=== PATIENT | female | born 1945 | race Two or more races ===

== ENCOUNTER 2018-08-12 20:28 | Inpatient (IN) | payer OTHER ==
[~2018-08-12] VITALS: Ht 149.9 cm; Wt 69.9 kg
[2018-08-12] MEDS: PIPERACILLIN SODIUM/TAZOBACTAM 3.375 G in IV DEXTROSE 5% 50 ML IV ONE ×2 (20:10→22:10)
[~2018-08-12 20:28] MED LIST: IBUPROFEN 100 MG
[2018-08-12] MEDS ORDERED: FAMOTIDINE. 20 MG/2 ML VIAL IV ONE ×2 (20:45→20:49)
[2018-08-12] MEDS ORDERED: methylPREDNISolone SOD SUCC 125 MG/2 ML VIAL IV ONE (20:45)
[2018-08-12] MEDS ORDERED: diphenhydrAMINE 50 MG/1 ML VIAL IV ONE (20:45)
[2018-08-12] MEDS ORDERED: diphenhydrAMINE 50 MG/1 ML VIAL ONE (20:48)
[2018-08-12] MEDS ORDERED: methylPREDNISolone SOD SUCC 125 MG/2 ML VIAL ONE (20:48)
[2018-08-12] MEDS ORDERED: IBUP-1955 PO (20:49)
[2018-08-12] MEDS ORDERED: ACETAMINOPHEN ES 500 MG TABLET ONE (20:58)
[2018-08-12] MEDS ORDERED: ACETAMINOPHEN ES 500 MG TABLET PO ONE (21:00)
--- NOTE | 2018-08-12 21:00 | NUR ---
PT BIB FAMILY FROM HOME FOR THE C/O GENERALIZED HIVES SINCE 1400 TODAY. PATIENT TOOK BENADRYL 1 MG. SPO2 98% ON RA. PT PLACED ON MONITOR. SAFE ENVIRONMENT IMPLEMENTED.
[2018-08-12 21:01] LABS: BASOPHILS % (AUTO) 0.7 % (0.0-2.0); EOSINOPHILS # (AUTO) 0.2 K/uL (0.0-0.7); EOSINOPHILS % (AUTO) 2.8 % (0.0-7.0); HEMATOCRIT 39.3 % (31.2-41.9); HEMOGLOBIN 13.7 g/dL (10.9-14.3); LYMPHOCYTES # (AUTO) 0.8 K/uL (20.0-40.0); LYMPHOCYTES % (AUTO) 14.6 % (20.5-51.5); MEAN CORPUSCULAR HEMOGLOBIN 30.7 uug (24.7-32.8); MEAN CORPUSCULAR HGB CONC 35 g/dL (32.3-35.6); MEAN CORPUSCULAR VOLUME 88.2 fL (75.5-95.3); MONOCYTES # (AUTO) 0.2 K/uL (2.0-10.0); MONOCYTES % (AUTO) 3.3 % (0.0-11.0); NEUTROPHILS # (AUTO) 4.4 K/uL (1.8-8.9); NEUTROPHILS % (AUTO) 78.6 % (38.5-71.5); PLATELET COUNT (AUTO) 117 K/uL (179-408); RED BLOOD CELL COUNT(AUTO) 4.46 MIL/uL (3.63-4.92); WHITE BLOOD COUNT (AUTO) 5.6 K/uL (3.8-11.8)
[2018-08-12 21:09] LABS: CARBON DIOXIDE 24 mmol/L (21-32); CHLORIDE 100 mmol/L (98-107); CREATININE 0.7 mg/dL (0.6-1.3); GLUCOSE 108 mg/dL (74-106); UREA NITROGEN, BLOOD 17 mg/dL (7-18)
[2018-08-12] MEDS ORDERED: ONDANSETRON 4 MG/2 ML VIAL IV ONE (21:15)
[2018-08-12] MEDS ORDERED: ONDANSETRON 4 MG/2 ML VIAL ONE (21:16)
[2018-08-12 21:21] LABS: ALANINE AMINOTRANSFERASE 133 U/L (14-59); ALKALINE PHOSPHATASE 114 U/L (50-136); ASPARTATE AMINOTRANSFERASE 124 U/L (15-37); BILIRUBIN,DIRECT 0.2 mg/dL (0.0-0.2); BILIRUBIN,TOTAL 0.7 mg/dL (0.2-1.0); TOTAL PROTEIN, SERUM 7.9 g/dL (6.4-8.2)
[2018-08-12 21:58] LABS: *BILIRUBIN,URIN NEGATIVE (NEGATIVE); *BLOOD, URINE Trace-lysed (NEGATIVE); *CLARITY,URINE SLIGHTLY CLOUDY (CLEAR); *KETONES,URINE NEGATIVE (NEGATIVE); *UROBILINOGEN,URINE 0.2 E.U./dl (NORMAL); LEUKOCYTE ESTERASE ,URINE 1+ (NEGATIVE); NITRITE, URINE NEGATIVE (NEGATIVE); PH,URINE 5.5 (5.0-8.0); UGLUCOSE NEGATIVE (NEGATIVE)
[2018-08-12] MEDS ORDERED: VANCOMYCIN IV 1,000 MG in IV DEXTROSE 5% 250 ML IV ONE (22:00)
[2018-08-12] MEDS ORDERED: IV NORMAL SALINE 1000 ML BAG IV ONE (22:00)
[2018-08-12 22:04] LABS: *COLOR,URINE YELLOW (YELLOW)
[2018-08-12 22:06] LABS: BACTERIA,URINE MODERATE /HPF (NONE SEEN); SQUAMOUS EPITHELIAL CELL,UR FEW /HPF (NONE SEEN); WBC,URINE 20-50 /HPF (0-3)
[2018-08-12] MEDS ORDERED: PIPERACILLIN/TAZOBACTAM/D5W 50 ML IV ONE (22:06)
[2018-08-12 22:07] LABS: MUCUS,URINE MANY /LPF (0-FEW)
--- NOTE | 2018-08-12 22:54 | NUR ---
HELENE FROM [facility] CALLED FOR MEDICAL INFORMATION WHICH I INFORMED.
[2018-08-12] MEDS ORDERED: VANCOMYCIN IV 200 ML ONE (23:05)
[2018-08-13] VITALS (7 sets, daily range): BP systolic 124–145; BP diastolic 50–70
--- NOTE | 2018-08-13 00:22 | NUR ---
EPIC PAGED FOR PANEL CALL.
--- NOTE | 2018-08-13 00:26 | NUR ---
Dr. Graf on phone with Dr. Lee.
[2018-08-13] MEDS ORDERED: IBUPROFEN 600 MG TABLET PO PRN (00:45)
[2018-08-13] MEDS ORDERED: Z GUARD REMEDY PASTE 57 GM TUBE TOP PRN (00:45)
[2018-08-13] MEDS ORDERED: MAGNESIUM HYDROXIDE 30 ML LIQUID UDC PO PRN (00:45)
[2018-08-13] MEDS ORDERED: HYDROCODONE/APAP 5-325MG TABLET PO PRN (00:45)
[2018-08-13] MEDS ORDERED: IV NS 1000 ML 1,000 ML IV SCH (00:45)
--- NOTE | 2018-08-13 01:00 | NUR ---
ADMITTED A 72 YEARS OLD FEMALE WITH DIAGNOSIS OF UTI/SEPSIS AND RASH OF UNKNOWN ORIGIN. PATIENT AAOX4, TELUGU SPEAKING ONLY. DAUGHTER ROE AT BEDSIDE AND TRANSLATED FOR THIS NURSE. IN NO ACUTE DISTRESS. DENIES ANY PAIN OR SOB AT THIS TIME. AFEBRILE. NSR ON TELE AT 95/MIN. IV SITE ON RIGHT AC INTACT AND PATENT. ROUTINE ADMISSION CARE DONE. PLAN OF CARE INITIATED. SAFETY MEASURE INITIATED AND CALL HARRIS WITHIN REACH.
--- NOTE | 2018-08-13 01:05 | NUR ---
Pt. admitted to TELE , under care of Dr. Lee Belongs List completed
[2018-08-13] MEDS ORDERED: CEFTRIAXONE 1 G VIAL ONE (01:29)
[2018-08-13] MEDS ORDERED: CEFTRIAXONE 1 G in IV DEXTROSE 5% 50 ML IV SCH (01:30)
--- NOTE | 2018-08-13 06:46 | NUR ---
AAOX4. IN NO ACUTE DISTRESS. DENIES ANY PAIN OR SOB. NSR ON TELE AT 93/MIN. IV SITE ON RIGHT AC INTACT AND PATENT. NO ADVERSE EFFECT NOTED FROM IV ABX. GENERALIZED RASHES/HIVES STILL VISIBLE. DENIES ANY ITCHING OR PAIN FROM RASH. ISOLATION PRECAUTION OBSERVED. SAFETY MEASURE MAINTAINED AND CALL HARRIS WITHIN REACH.
[2018-08-13] MEDS: ACETAMINOPHEN 325 MG TABLET PO PRN ×2 (07:22→20:59)
[2018-08-13 07:25] LABS: BASOPHILS % (AUTO) 0.2 % (0.0-2.0); EOSINOPHILS % (AUTO) 0.1 % (0.0-7.0); HEMATOCRIT 38.3 % (31.2-41.9); LYMPHOCYTES # (AUTO) 0.5 K/uL (20.0-40.0); LYMPHOCYTES % (AUTO) 9.9 % (20.5-51.5); MEAN CORPUSCULAR HEMOGLOBIN 30.5 uug (24.7-32.8); MEAN CORPUSCULAR HGB CONC 34 g/dL (32.3-35.6); MEAN CORPUSCULAR VOLUME 89.8 fL (75.5-95.3); MONOCYTES # (AUTO) 0.1 K/uL (2.0-10.0); MONOCYTES % (AUTO) 1.9 % (0.0-11.0); NEUTROPHILS # (AUTO) 4.8 K/uL (1.8-8.9); NEUTROPHILS % (AUTO) 87.9 % (38.5-71.5); PLATELET COUNT (AUTO) 112 K/uL (179-408); RED BLOOD CELL COUNT(AUTO) 4.26 MIL/uL (3.63-4.92); WHITE BLOOD COUNT (AUTO) 5.5 K/uL (3.8-11.8)
[2018-08-13 07:37] LABS: CARBON DIOXIDE 22 mmol/L (21-32); CHLORIDE 104 mmol/L (98-107); CHOLESTEROL 132 mg/dL (<200); CREATININE 0.8 mg/dL (0.6-1.3); GLUCOSE 176 mg/dL (74-106); HDL CHOLESTEROL 38 mg/dL (40-60); MAGNESIUM 1.6 mg/dL (1.8-2.4); PHOSPHOROUS 3.4 mg/dL (2.5-4.9); POTASSIUM 3.9 mmol/L (3.5-5.1); TRIGLYCERIDES 148 MG/DL (30-150); UREA NITROGEN, BLOOD 11 mg/dL (7-18)
[2018-08-13 07:44] LABS: BILIRUBIN,DIRECT 0.1 mg/dL (0.0-0.2); BILIRUBIN,TOTAL 0.5 mg/dL (0.2-1.0); TOTAL PROTEIN, SERUM 7.5 g/dL (6.4-8.2)
--- NOTE | 2018-08-13 08:08 | NUR ---
Received critical lab for Lactic Acid 4.0, relayed to Catarina [employer] TEAM MEMBER with orders. Awake, alert, oriented x4, thai speaking with family at bedside
[2018-08-13] MEDS ORDERED: IV NS 1000 ML 1,000 ML IV ONE ×2 (08:15→18:30)
[2018-08-13] MEDS: ONDANSETRON 4 MG/2 ML VIAL IV PRN (08:44)
--- NOTE | 2018-08-13 11:10 | NUR ---
IV Bolus done. Vital signs rechecked and recorded. Afebrile.
--- NOTE | 2018-08-13 11:30 | NUR ---
Generalized rashes examined with Infection Control Roney. ID consulted. Airborne precaution enforced. Hepa filter placed in the room.
[2018-08-13] MEDS ORDERED: MAGNESIUM OXIDE 400 MG TABLET PO ONE (12:15)
--- NOTE | 2018-08-13 15:33 | NUR ---
Noted generalized rashes, seen examined by ID. MMR lab drawn. Continue airborne isolation
[2018-08-13] MEDS ORDERED: OMEP20CA10 PO (16:38)
--- NOTE | 2018-08-13 18:24 | NUR ---
Ate fairly; IVF infusing. Afebrile.
--- NOTE | 2018-08-13 18:35 | NUR ---
Lactic acid 3.7; Another NS bolus 1 liter initiated. Will endorsed for further care and follow up
[2018-08-13] MEDS: IV NS 1000 ML 1,000 ML IV PRN (18:36)
--- NOTE | 2018-08-13 19:20 | NUR ---
PATIENT ALERT AND AWAKE. IV FLUID INFUSING ORDERED PATIENT CONTINUING ON AIRBORNE PRECAUTIONS. RASH WITH REDNESS PRESENT THROUGH OUT LING BODY. NO FEVER NOTED. WILL CONTINUE OT MONITOR
[2018-08-14] MEDS: CEFTRIAXONE 1 G in IV DEXTROSE 5% 50 ML IV SCH (01:52)
[2018-08-14 03:35] VITALS: BP 156/54
[2018-08-14 05:49] LABS: BASOPHILS % (AUTO) 0.3 % (0.0-2.0); EOSINOPHILS # (AUTO) 0.1 K/uL (0.0-0.7); HEMATOCRIT 34.2 % (31.2-41.9); HEMOGLOBIN 11.8 g/dL (10.9-14.3); LYMPHOCYTES # (AUTO) 1.2 K/uL (20.0-40.0); LYMPHOCYTES % (AUTO) 21.2 % (20.5-51.5); MEAN CORPUSCULAR HEMOGLOBIN 30.6 uug (24.7-32.8); MEAN CORPUSCULAR HGB CONC 34 g/dL (32.3-35.6); MEAN CORPUSCULAR VOLUME 88.8 fL (75.5-95.3); MONOCYTES # (AUTO) 0.3 K/uL (2.0-10.0); NEUTROPHILS # (AUTO) 4.1 K/uL (1.8-8.9); NEUTROPHILS % (AUTO) 71.5 % (38.5-71.5); PLATELET COUNT (AUTO) 120 K/uL (179-408); RED BLOOD CELL COUNT(AUTO) 3.86 MIL/uL (3.63-4.92); WHITE BLOOD COUNT (AUTO) 5.7 K/uL (3.8-11.8)
[2018-08-14] MEDS: IV NS 1000 ML 1,000 ML IV PRN ×2 (05:58→21:17)
[2018-08-14 05:59] LABS: CARBON DIOXIDE 22 mmol/L (21-32); CHLORIDE 107 mmol/L (98-107); CREATININE 0.6 mg/dL (0.6-1.3); GLUCOSE 106 mg/dL (74-106); MAGNESIUM 1.8 mg/dL (1.8-2.4); PHOSPHOROUS 2.9 mg/dL (2.5-4.9); POTASSIUM 3.5 mmol/L (3.5-5.1); UREA NITROGEN, BLOOD 11 mg/dL (7-18)
--- NOTE | 2018-08-14 06:47 | NUR ---
NO CHANGE IN RASH NOTED. CONTINUING ON AIRBORNE PRECAUTION. NO C/O OF PAIN OR ANY DISTRESS. NO FEVER. WILL ALL NEEDS ATTENDED
--- NOTE | 2018-08-14 07:15 | NUR ---
RECEIVED PATIENT ON AIRBORN PRECAUTIONS. PATIENT IN BED ASLEEP, EASY TO AROUSE, AOX4 NAURUAN SPEAKING, UNDERSTANDS ITALIAN. R AC GETING NS AT 125CC/HR. PATIENT DENIES PAIN OR SOB. ALL NEEDS MET AT THIS TIME. SAFETY PRECAUTIONS IN PLACE. WILL CONTINUE TO MONITOR.
[2018-08-14] MEDS ORDERED: IV NS 1000 ML 1,000 ML IV ONE (08:15)
[2018-08-14 11:10] VITALS: BP 167/54
[2018-08-14 15:10] VITALS: BP 125/50
--- NOTE | 2018-08-14 19:28 | NUR ---
PATIENT VS TABLE THROUGH SHIFT. NO FEVER. DENIES PAIN THROUGH SHIFT. ALL NEEDS MET AT THIS TIME.
[2018-08-14 20:00] VITALS: BP 166/74
--- NOTE | 2018-08-14 20:00 | NUR ---
PATIENT LYING ON BED, AWAKE, CONTINUING ON AIRBORNE ISOLATION FOR MEASLES R/O. STILL NOTE WITH RASH THROUGH OUT THE BODY . PATIENT AFEBRILE. CONTINUING ON IVF ORDERED. WILL CONTINUE TO MONITOR.
[2018-08-14 21:00] VITALS: BP 114/51
[2018-08-15] MEDS: CEFTRIAXONE 1 G in IV DEXTROSE 5% 50 ML IV SCH (02:10)
[2018-08-15 03:18] VITALS: BP 120/60
[2018-08-15 06:12] LABS: BASOPHILS % (AUTO) 0.4 % (0.0-2.0); EOSINOPHILS # (AUTO) 0.1 K/uL (0.0-0.7); EOSINOPHILS % (AUTO) 2.9 % (0.0-7.0); HEMATOCRIT 34.4 % (31.2-41.9); HEMOGLOBIN 11.7 g/dL (10.9-14.3); LYMPHOCYTES # (AUTO) 1.5 K/uL (20.0-40.0); LYMPHOCYTES % (AUTO) 30.8 % (20.5-51.5); MEAN CORPUSCULAR HEMOGLOBIN 30.5 uug (24.7-32.8); MEAN CORPUSCULAR HGB CONC 34 g/dL (32.3-35.6); MEAN CORPUSCULAR VOLUME 89.4 fL (75.5-95.3); MONOCYTES # (AUTO) 0.3 K/uL (2.0-10.0); MONOCYTES % (AUTO) 6.8 % (0.0-11.0); NEUTROPHILS # (AUTO) 2.9 K/uL (1.8-8.9); NEUTROPHILS % (AUTO) 59.1 % (38.5-71.5); PLATELET COUNT (AUTO) 140 K/uL (179-408); RED BLOOD CELL COUNT(AUTO) 3.85 MIL/uL (3.63-4.92)
[2018-08-15 06:23] LABS: CARBON DIOXIDE 27 mmol/L (21-32); CHLORIDE 107 mmol/L (98-107); CREATININE 0.6 mg/dL (0.6-1.3); GLUCOSE 96 mg/dL (74-106); MAGNESIUM 1.8 mg/dL (1.8-2.4); PHOSPHOROUS 2.9 mg/dL (2.5-4.9); POTASSIUM 3.4 mmol/L (3.5-5.1); UREA NITROGEN, BLOOD 8 mg/dL (7-18)
--- NOTE | 2018-08-15 07:25 | NUR ---
PATIENT ON AIRBORNE ISOLATION FOR MEASLES R/O. PATIENT LAYING IN THE BED , ALERT AND ORIENTED . STILL NOTED WITH RASH THROUGH OUT THE BODY . PATIENT AFEBRILE. CONTINUING ON IVF ORDERED. WILL CONTINUE TO MONITOR. CONTINUE PLAN OF CARE.
[2018-08-15] MEDS: IV NS 1000 ML 1,000 ML IV PRN (09:20)
[2018-08-15] MEDS: ACETAMINOPHEN 325 MG TABLET PO PRN (09:55)
[2018-08-15] MEDS: ONDANSETRON 4 MG/2 ML VIAL IV PRN ×2 (09:57→18:53)
[2018-08-15] MEDS ORDERED: POTASSIUM CHLORIDE 50 ML IV SCH (10:00)
[2018-08-15 11:42] VITALS: BP 115/52
--- NOTE | 2018-08-15 18:30 | NUR ---
RESIDENT WAS SHOWING SIGNS OF EDEMA ON THE RIGHT ARM WITH IV , STOP IV FLUIDS AND REMOVED AND ELEVATE THE ARM WITH 2 PILLOWS, INSERT ANOTHER IV ON THE LEFT WRIST. CALLED JUANY ADAMS, REGARDING THE SITUATION WITH NEW ORDERS TO STOP IV FLUIDS FOR NOW.
--- NOTE | 2018-08-15 19:00 | NUR ---
RESIDENTS EDEMA SUBSIDED AND PATIENT ABLE TO GRAB WITH HER HAND THE CUP OF WATER AND SNACKS ON HER TABLE , NO PAIN NOTED AT THIS TIME, WILL CONTINUE TO MONITOR
--- NOTE | 2018-08-15 19:25 | NUR ---
RECEIVED PT AWAKE, ALERT AND ORIENTEDX4. FAMILY AT [place]. PT ON AIRBORNE PRECAUTION.PT SHOWS NO SIGNS OF ACUTE DISTRESS. IV INTACT. PT RIGHT ARM SWOLLEN . DOCTOR AWARE. PT RIGHT ARM ELEVATED AND HAVE ICE PACK. CALL LIGHT WITHIN REACH. SAFETY AND COMFORT PROVIDED. WILL CONTINUE TO MONITOR.
[2018-08-15 20:18] VITALS: BP 140/82
[2018-08-16] MEDS: CEFTRIAXONE 1 G in IV DEXTROSE 5% 50 ML IV SCH (02:08)
--- NOTE | 2018-08-16 04:55 | NUR ---
INFORMATION SENT: KEVIN PRATER NOTES 08/31,UR 07/18 INSURANCE NAME:[employer] FAX NUMBER: [phone]/ [phone] FAX SENT
--- NOTE | 2018-08-16 06:05 | NUR ---
INFORMATION SENT: KEVIN PRATER NOTES 08/31,UR 08/15 INSURANCE NAME:[employer] FAX NUMBER: [phone] / [phone] FAX SENT
[2018-08-16 06:27] VITALS: BP 135/72
--- NOTE | 2018-08-16 06:32 | NUR ---
PT SLEPT INTERMITTENTLY. PT SHOWS NO SIGNS OF DISTRESS. PRESCRIBED MEDICATION GIVEN AND PT TOLERATED IT WELL. SAFETY AND COMFORT PROVIDED. ALL NEEDS ARE MET. AIRBORNE PRECAUTION OBSERVED.WILL ENDORSE ACCORDINGLY TO INCOMING NURSE FOR CONTINUITY OF CARE.
[2018-08-16 07:06] LABS: BASOPHILS % (AUTO) 0.6 % (0.0-2.0); EOSINOPHILS # (AUTO) 0.1 K/uL (0.0-0.7); MONOCYTES # (AUTO) 0.4 K/uL (2.0-10.0); NEUTROPHILS # (AUTO) 2.7 K/uL (1.8-8.9); NEUTROPHILS % (AUTO) 51.2 % (38.5-71.5); WHITE BLOOD COUNT (AUTO) 5.3 K/uL (3.8-11.8)
[2018-08-16 07:12] LABS: EOSINOPHILS % (AUTO) 2.4 % (0.0-7.0); LYMPHOCYTES % (AUTO) 38.2 % (20.5-51.5); MEAN CORPUSCULAR HEMOGLOBIN 30.8 uug (24.7-32.8); MEAN CORPUSCULAR HGB CONC 35 g/dL (32.3-35.6); MEAN CORPUSCULAR VOLUME 89.3 fL (75.5-95.3); MONOCYTES % (AUTO) 7.6 % (0.0-11.0); PLATELET COUNT (AUTO) 154 K/uL (179-408); RED BLOOD CELL COUNT(AUTO) 3.58 MIL/uL (3.63-4.92)
[2018-08-16 07:21] LABS: CARBON DIOXIDE 24 mmol/L (21-32); CHLORIDE 107 mmol/L (98-107); CREATININE 0.6 mg/dL (0.6-1.3); GLUCOSE 92 mg/dL (74-106); PHOSPHOROUS 3.8 mg/dL (2.5-4.9); POTASSIUM 3.7 mmol/L (3.5-5.1); UREA NITROGEN, BLOOD 9 mg/dL (7-18)
--- NOTE | 2018-08-16 07:26 | NUR ---
PATIENT LAYING IN BED . ALERT AND ORIENTED. CONTINUE ON AIRBORNE PRECAUTION. NO S/S OF ACUTE DISTRESS. IV INTACT AND PATENT IN THE LEFT WRIST. SAFETY AND COMFORT PROVIDED. WILL CONTINUE TO MONITOR. CONTINUE PLAN OF CARE. CALL LIGHT WITHIN REACHED.
[2018-08-16] MEDS: ACETAMINOPHEN 325 MG TABLET PO PRN (10:00)
--- NOTE | 2018-08-16 11:00 | NUR ---
check patient in the room , no c/o pain and no c/o N/V noted at this time.
[2018-08-16 11:16] VITALS: BP 128/67
--- NOTE | 2018-08-16 15:00 | NUR ---
check patient in bed resting comfortably, no c/o pain or discomfort noted, kept clean and dry at all times.
[2018-08-16 15:54] VITALS: BP 123/55
--- NOTE | 2018-08-16 19:00 | NUR ---
PATIENT LAYING IN BED . ALERT AND ORIENTED. CONTINUE ON AIRBORNE PRECAUTION. NO S/S OF ACUTE DISTRESS. IV INTACT AND PATENT IN THE LEFT WRIST. SAFETY AND COMFORT PROVIDED. WILL CONTINUE TO MONITOR. CONTINUE PLAN OF CARE
--- NOTE | 2018-08-16 19:25 | NUR ---
RECEIVED PT AWAKE ,ALERT AND ORIENTED X 4. PT SHOWS NO SIGNS OF ACUTE DISTRESS. IV INTACT AND PATENT. SAFETY AND COMFORT PROVIDED. CALL LIGHT WITHIN REACH. WILL CONTINUE TO MONITOR.
[2018-08-16 20:27] VITALS: BP 142/66
--- NOTE | 2018-08-16 23:30 | NUR ---
Received patient lying in bed. Asleep but easily arouse to verbal stimuli. AOx4, Syriac speaking only. In no acute distress. Denies any pain or SOB. IV site on left wrist intact and patent. Isolation precaution observed. Continue to monitor.
--- NOTE | 2018-08-17 05:46 | NUR ---
INFORMATION SENT: KEVIN PRATER NOTES 08/16,08/15,08/14,CONSULTATION,UR 08/16 INSURANCE NAME:[employer] FAX NUMBER: [phone]& [phone] FAX SENT
--- NOTE | 2018-08-17 05:53 | NUR ---
Slept through out the night. Remains AOx4. In no acute distress. Denies any pain or SOB. IV site on left wrist intact and patent. Needs assessed and attended to. Isolation precaution observed. Safety measure maintained and call pereyra within reach.
[2018-08-17 06:50] VITALS: BP 140/62
[2018-08-17 08:21] LABS: BASOPHILS # (AUTO) 0.1 K/uL (0.0-8.0); BASOPHILS % (AUTO) 0.9 % (0.0-2.0); EOSINOPHILS # (AUTO) 0.1 K/uL (0.0-0.7); EOSINOPHILS % (AUTO) 1.8 % (0.0-7.0); HEMATOCRIT 34.6 % (31.2-41.9); HEMOGLOBIN 11.8 g/dL (10.9-14.3); LYMPHOCYTES # (AUTO) 2.5 K/uL (20.0-40.0); LYMPHOCYTES % (AUTO) 42.7 % (20.5-51.5); MEAN CORPUSCULAR HEMOGLOBIN 30.5 uug (24.7-32.8); MEAN CORPUSCULAR HGB CONC 34 g/dL (32.3-35.6); MEAN CORPUSCULAR VOLUME 89.3 fL (75.5-95.3); MONOCYTES # (AUTO) 0.5 K/uL (2.0-10.0); NEUTROPHILS # (AUTO) 2.8 K/uL (1.8-8.9); NEUTROPHILS % (AUTO) 46.6 % (38.5-71.5); PLATELET COUNT (AUTO) 190 K/uL (179-408); RED BLOOD CELL COUNT(AUTO) 3.88 MIL/uL (3.63-4.92)
[2018-08-17 08:36] LABS: CARBON DIOXIDE 25 mmol/L (21-32); CHLORIDE 104 mmol/L (98-107); CREATININE 0.6 mg/dL (0.6-1.3); GLUCOSE 88 mg/dL (74-106); PHOSPHOROUS 4.1 mg/dL (2.5-4.9); POTASSIUM 3.7 mmol/L (3.5-5.1); UREA NITROGEN, BLOOD 11 mg/dL (7-18)
[2018-08-17 12:25] VITALS: BP 144/67
--- NOTE | 2018-08-17 15:50 | NUR ---
PATIENT DISCHARGED IN STABLE CONDITION, DISCHARGE PAPERS AND INSTRUCTIONS GIVEN AND EXPLAINED TO PATIENT. IV ACCESS REMOVED. ID BAND DISPODED PROPERLY. DC PICTURES TAKEN AND PLACED IN CHART. PATIENT LEFT HOSPITAL ACCOMPANIED BY DAUGHTER.
--- NOTE | 2018-08-18 05:05 | NUR ---
INFORMATION SENT: KEVIN PRATER NOTES 08/17,DISCHARGE SUMMARY,UR 08/17 INSURANCE NAME: [employer] FAX NUMBER: [phone]& [phone]/ [phone] FAX SENT
== END 2018-08-17 15:50 | disposition home or self-care (01) | DRG 872 ==
LOC: ER 20:30 → TELE3 08-13 00:50 → MEDSURG3 08-13 10:29
PROVIDERS: ADMIT Family Medicine; ATTEND Registered Nurse
DX: A41.9 Sepsis, unspecified organism (principal); N39.0 Urinary tract infection, site not specified; E87.2 Acidosis; K21.9 Gastro-esophageal reflux disease without esophagitis; Z87.01 Personal history of pneumonia (recurrent); G43.909 Migraine, unspecified, not intractable, without status migrainosus; E87.6 Hypokalemia; E66.9 Obesity, unspecified; M19.90 Unspecified osteoarthritis, unspecified site; G89.29 Other chronic pain; M54.40 Lumbago with sciatica, unspecified side; Z82.49 Family history of ischemic heart disease and other diseases of the circulatory system; D69.6 Thrombocytopenia, unspecified; Z90.49 Acquired absence of other specified parts of digestive tract; B96.89 Other specified bacterial agents as the cause of diseases classified elsewhere; R74.0 Nonspecific elevation of levels of transaminase and lactic acid dehydrogenase [LDH]
CPT/HCPCS: 36415; 70030-TC; 71045; 83605; 83690; 83735; 84100; 85025; 85730; 86403; 87040; 87070; 87077; 87086; 87400; 93005; A4663; A9150; G0378; J0696; J1200; J2405; J2543; J2930; J3370; J3480; J3490; J7030; J7060

== ENCOUNTER 2019-03-17 15:55 | Inpatient (IN) | payer OTHER ==
[~2019-03-17] VITALS: Ht 152.4 cm; Wt 68.2 kg
[~2019-03-17 15:55] MED LIST changes: +IBUP-1955 PO; +OMEP20CA11 PO
[2019-03-17 16:26] LABS: BASOPHILS % (AUTO) 0.2 % (0.0-2.0); EOSINOPHILS % (AUTO) 0.2 % (0.0-7.0); HEMATOCRIT 39.7 % (31.2-41.9); HEMOGLOBIN 13.6 g/dL (10.9-14.3); LYMPHOCYTES # (AUTO) 1.4 K/uL (20.0-40.0); LYMPHOCYTES % (AUTO) 18.8 % (20.5-51.5); MEAN CORPUSCULAR HEMOGLOBIN 31.3 uug (24.7-32.8); MEAN CORPUSCULAR HGB CONC 34 g/dL (32.3-35.6); MEAN CORPUSCULAR VOLUME 91.2 fL (75.5-95.3); MONOCYTES # (AUTO) 0.5 K/uL (2.0-10.0); NEUTROPHILS # (AUTO) 5.4 K/uL (1.8-8.9); NEUTROPHILS % (AUTO) 73.8 % (38.5-71.5); PLATELET COUNT (AUTO) 174 K/uL (179-408); RED BLOOD CELL COUNT(AUTO) 4.35 MIL/uL (3.63-4.92); WHITE BLOOD COUNT (AUTO) 7.3 K/uL (3.8-11.8)
--- NOTE | 2019-03-17 16:26 | NUR ---
PT IS IN ROOM #2A. DR LEVI EVALUATED THE PT.
[2019-03-17] MEDS ORDERED: PANTOPRAZOLE SODIUM 40 MG VIAL IV ONE (16:30)
[2019-03-17] MEDS ORDERED: ONDANSETRON 4 MG/2 ML VIAL IV ONE (16:30)
[2019-03-17] MEDS ORDERED: IV NORMAL SALINE 1000 ML BAG IV ONE (16:30)
[2019-03-17] MEDS ORDERED: ONDANSETRON 4 MG/2 ML VIAL ONE (16:32)
[2019-03-17] MEDS ORDERED: PANTOPRAZOLE SODIUM 40 MG VIAL ONE (16:32)
[2019-03-17 16:34] LABS: CREATININE 0.7 mg/dL (0.6-1.3); POTASSIUM 3.5 mmol/L (3.5-5.1)
[2019-03-17 16:39] LABS: BILIRUBIN,DIRECT 0.2 mg/dL (0.0-0.2); BILIRUBIN,TOTAL 0.9 mg/dL (0.2-1.0); TOTAL PROTEIN, SERUM 7.7 g/dL (6.4-8.2)
--- NOTE | 2019-03-17 19:20 | NUR ---
JEFF giving report to [facility] for transfer Addendum: 03/17/[address] Albright from [facility] accepts patient for admission transfer
--- NOTE | 2019-03-17 19:41 | NUR ---
Dr. Kyle from [place] [facility]
[2019-03-17] MEDS ORDERED: MAG HYDROX/AL HYDROX/SIMETH 30 ML LIQUID UDC PO ONE (19:45)
[2019-03-17] MEDS ORDERED: MAG HYDROX/AL HYDROX/SIMETH 30 ML LIQUID UDC ONE (20:01)
--- NOTE | 2019-03-17 20:47 | NUR ---
Per Victoriano, Registrar, [place] gave the okay to admit here. Called [facility], awaiting call back from Dr. Lazcano
--- NOTE | 2019-03-17 21:02 | NUR ---
Dr. Lazcano returned phone call and is on the line with JEFF
--- NOTE | 2019-03-17 21:07 | NUR ---
Report given to HILDA Burnett
[2019-03-17 21:25] VITALS: BP 152/52
--- NOTE | 2019-03-17 21:25 | NUR ---
73 y/o female admitted under Dr. Welsh to tele from ED. Diagnosis chest pain. Patient in stable condition. Tele monitor attached to patient which shows sinus rhythm. Vital signs taken 97% O2 sat, HR 89, BP 152/52. No respiratory distress in the moment. No complaints of chest pain at this time. Admission protocol initiated. Daughters at the bed side. Safety precautions in place. Bed in lowest position locked, with 2 side rails up. Will continue to monitor.
[2019-03-17] MEDS ORDERED: ZOLPIDEM 5 MG TABLET PO PRN (21:30)
[2019-03-17] MEDS ORDERED: Z GUARD REMEDY PASTE 57 GM TUBE TOP PRN (21:30)
[2019-03-17] MEDS ORDERED: ACETAMINOPHEN 325 MG TABLET PO PRN (21:30)
[2019-03-17] MEDS ORDERED: HYDROCODONE/APAP 5-325MG TABLET PO PRN (21:30)
[2019-03-17] MEDS ORDERED: MORPHINE SULFATE 2 MG/1 ML DISP.SYRIN IV PRN (21:30)
[2019-03-17] MEDS ORDERED: MAGNESIUM HYDROXIDE 30 ML LIQUID UDC PO PRN (21:30)
[2019-03-17] MEDS ORDERED: NITROGLYCERIN 0.4 MG/TAB BOTTLE SL PRN (21:30)
--- NOTE | 2019-03-17 21:30 | NUR ---
Patient transported to TELE in stable condition.
[2019-03-17] MEDS: ONDANSETRON 4 MG/2 ML VIAL IV PRN (22:16)
[2019-03-18] VITALS: BP 125/55
[2019-03-18 03:36] LABS: BASOPHILS % (AUTO) 0.3 % (0.0-2.0); EOSINOPHILS % (AUTO) 0.2 % (0.0-7.0); HEMATOCRIT 35.6 % (31.2-41.9); HEMOGLOBIN 12.4 g/dL (10.9-14.3); LYMPHOCYTES # (AUTO) 1.2 K/uL (20.0-40.0); LYMPHOCYTES % (AUTO) 29.1 % (20.5-51.5); MEAN CORPUSCULAR HEMOGLOBIN 31.3 uug (24.7-32.8); MEAN CORPUSCULAR HGB CONC 35 g/dL (32.3-35.6); MEAN CORPUSCULAR VOLUME 89.9 fL (75.5-95.3); MONOCYTES # (AUTO) 0.4 K/uL (2.0-10.0); MONOCYTES % (AUTO) 9.8 % (0.0-11.0); NEUTROPHILS # (AUTO) 2.6 K/uL (1.8-8.9); NEUTROPHILS % (AUTO) 60.6 % (38.5-71.5); PLATELET COUNT (AUTO) 149 K/uL (179-408); RED BLOOD CELL COUNT(AUTO) 3.96 MIL/uL (3.63-4.92); WHITE BLOOD COUNT (AUTO) 4.3 K/uL (3.8-11.8)
[2019-03-18 03:45] LABS: CREATININE 0.7 mg/dL (0.6-1.3); MAGNESIUM 1.8 mg/dL (1.8-2.4); PHOSPHOROUS 3.5 mg/dL (2.5-4.9); POTASSIUM 3.3 mmol/L (3.5-5.1)
[2019-03-18 03:53] LABS: THYROID STIMULATING HORMONE 2.404 mIU/mL (0.358-3.740)
[2019-03-18 04:00] VITALS: BP 126/63
[2019-03-18 06:27] LABS: *BILIRUBIN,URIN NEGATIVE (NEGATIVE); *CLARITY,URINE SLIGHTLY CLOUDY (CLEAR); *COLOR,URINE YELLOW (YELLOW); *KETONES,URINE NEGATIVE (NEGATIVE); *UROBILINOGEN,URINE 0.2 E.U./dl (NORMAL); LEUKOCYTE ESTERASE ,URINE 1+ (NEGATIVE); NITRITE, URINE POSITIVE (NEGATIVE); UGLUCOSE NEGATIVE (NEGATIVE)
[2019-03-18 06:40] LABS: *BLOOD, URINE TRACE (NEGATIVE)
--- NOTE | 2019-03-18 06:45 | NUR ---
Patient slept throughout the night. Respirations normal. Vital signs within normal. Denies any discomfort, chest pain, or any pain. Tolerated medications. Vital signs within normal limits. Daughter at the bedside. Patient request IV fluids for hydration. Continue with plan of care.
[2019-03-18 06:54] LABS: BACTERIA,URINE MANY /HPF (NONE SEEN); SQUAMOUS EPITHELIAL CELL,UR MODERATE /HPF (NONE SEEN)
[2019-03-18 06:55] LABS: MUCUS,URINE FEW /LPF (0-FEW)
--- NOTE | 2019-03-18 07:45 | NUR ---
Received patient awake in bed. AAOx4. Mainly Latvian speaking. Son at the bedside. In no acute distress. Denies any discomfort or chest pain. Verbalizes feeling nauseous. Will medicate accordingly. IV on left AC intact and patent. Safety measures implemented. Call light within reach. Will continue to monitor.
[2019-03-18] MEDS: ONDANSETRON 4 MG/2 ML VIAL IV PRN (08:26)
[2019-03-18] MEDS ORDERED: ASPIRIN EC 81 MG TABLET.DR PO SCH (09:00)
[2019-03-18 11:34] VITALS: BP 109/56
[2019-03-18] MEDS ORDERED: INFLUENZA VACCINE 2019-2020 0.5 ML DISP.SYRIN IM ONE (13:45)
--- NOTE | 2019-03-18 14:55 | NUR ---
Discharge orders in place. Cleared by dietitian assistant and sap director. Exit care and education provided. Instructed to go to nearest ER if symptoms reappear and to follow up with PCP within one week. Flu vaccine administered and educated on benefits of vaccination. ID band and IV access removed. In no acute distress. Vital sign stable. Patient discharged to home.
[2019-03-18] MEDS ORDERED: POTASSIUM CHLORIDE 20 MEQ TAB.PRT.SR PO ONE (15:00)
== END 2019-03-18 14:55 | disposition home or self-care (01) | DRG 392 ==
LOC: ER 16:00 → MERGE 16:00 → TELE3 21:13
DX: K21.9 Gastro-esophageal reflux disease without esophagitis (principal); K76.0 Fatty (change of) liver, not elsewhere classified; D69.6 Thrombocytopenia, unspecified; M19.90 Unspecified osteoarthritis, unspecified site; N85.8 Other specified noninflammatory disorders of uterus
CPT/HCPCS: 36415; 70030-TC; 71045; 83690; 83735; 84100; 84443; 85025; 85730; 87086; 90686; 93005; 93307; A4663; C9113; G0378; J2405; J7030